=== PATIENT | female | born 1965 | race Caucasian/White ===

== ENCOUNTER 2018-04-26 14:38 | Emergency (ER) | payer OTHER ==
[~2018-04-26] VITALS: Ht 154.9 cm; Wt 72.6 kg
[~2018-04-26 14:38] MED LIST: IBUPROFEN600 MG ORAL; LEVOFLOXACIN500 MG ORAL; LEVOTHYROXINE75 MCG ORAL; MECLIZINE HCL25 MG ORAL; PREDNISONE5 M4 PO; PROAIR HFA8.5 GM INH; PROMETHAZINE-C118 M1 ORAL; TRAMADOL HCL50 MG ORAL; ZOFRAN4 MG ORAL
[2018-04-26 15:07] VITALS: BP 105/77
[2018-04-26] MEDS ORDERED: ZITHROMAX250 MG ORAL ×2 (16:11→16:17)
[2018-04-26] MEDS ORDERED: PROMETHAZINE-C118 M1 ORAL ×2 (16:11→16:17)
[2018-04-26] MEDS ORDERED: ALBUTEROL SULF8.5 GM INH ×2 (16:11→16:17)
[2018-04-26] MEDS ORDERED: PREDNISONE20 MG ORAL ×2 (16:11→16:17)
[2018-04-26 16:20] VITALS: BP 112/80
--- NOTE | 2018-04-26 16:31 | Diagnostic Imaging Report ---
EXAM: XR Chest, 1 View CLINICAL HISTORY: COUGH TECHNIQUE: Frontal view of the chest. COMPARISON: No relevant prior studies available. FINDINGS: Lungs: No consolidation. Pleural space: Unremarkable. No pneumothorax. Heart: Unremarkable. No cardiomegaly. Mediastinum: Unremarkable. Bones/joints: No acute fracture. IMPRESSION: No acute cardiopulmonary disease.
--- NOTE | 2018-04-26 18:00 | Emergency Room Report ---
History of Present Illness General Chief Complaint: Upper Respiratory Illness Source: Patient Present Illness HPI 52-year-old female presents ED for evaluation of cough. States she's had this persistent cough for 20 days now. Dry. Nonproductive. not improving with over -the-counter medications. Denies fevers or chills. Denies chest pain. Denies smoking. Denies sick contacts or recent travel. No other aggravating relieving factors. Denies any other associated symptoms Allergies: Coded Allergies: No Known Allergies (Unverified , 11/29/17) Patient History Past Medical History: none Past Surgical History: none Pertinent Family History: none Social History: Denies: smoking, alcohol use, drug use Now: No Immunizations: UTD Reviewed Nursing Documentation: PMH: Agreed; PSxH: Agreed Nursing Documentation-PMH Past Medical History: No Stated History Review of Systems All Other Systems: negative except mentioned in HPI Physical Exam Vital Signs Date Time Temp Pulse Resp B/P (MAP) Pulse Ox O2 Delivery O2 Flow Rate FiO2 04/26/18 14:57 98.2 86 20 105/77 91 Room Air 98.2 Sp02 EP Interpretation: reviewed, normal General Appearance: no apparent distress, alert, GCS 15, non-toxic Head: normocephalic, atraumatic Eyes: bilateral eye normal inspection, bilateral eye PERRL ENT: hearing grossly normal, normal pharynx, no angioedema, normal voice Neck: full range of motion, supple/symm/no masses Respiratory: chest non-tender, lungs clear, normal breath sounds, speaking full sentences Cardiovascular #1: regular rate, rhythm, no edema Cardiovascular #2: 2+ carotid (R), 2+ carotid (L), 2+ radial (R), 2+ radial (L) , 2+ dorsalis pedis (R), 2+ dorsalis pedis (L) Gastrointestinal: normal bowel sounds, non tender, soft, non-distended, no guarding, no rebound Rectal: deferred Genitourinary: normal inspection, no CVA tenderness Musculoskeletal: back normal, gait/station normal, normal range of motion, non- tender Neurologic: alert, oriented x3, responsive, motor strength/tone normal, sensory intact, speech normal Psychiatric: judgement/insight normal, memory normal, mood/affect normal, no suicidal/homicidal ideation Reflexes: 3+ bicep (R), 3+ bicep (L), 3+ tricep (R), 3+ tricep (L), 3+ knee (R) , 3+ knee (L) Skin: normal color, no rash, warm/dry, well hydrated Lymphatic: no adenopathy Medical Decision Making Diagnostic Impression: Primary Impression: Atypical pneumonia ER Course Hospital Course 52-year-old female presents ED complaining of cough x3 weeks Differential diagnoses include: URI, pharyngitis, otitis media, asthma Clinical course Patient placed on stretcher. After initial history, physical exam reveals a female in no acute distress. Bilateral TM unremarkable. No pharyngeal erythema. No tonsillar exudates. No lymphadenopathy. lungs clear. abdomen soft. chest x-ray shows no lobar infiltrate Presentation consistent with atypical pneumonia. Given prolonged course, i will prescribe antibiotics Diagnosis - atypical pneumonia Stable and discharged home with Rx Zpack, prednisone, albuterol, promethazine/ codeine. Instructed to followup with PMD. Return to ED if symptoms recur or worsen Chest X-Ray Diagnostic Results Chest X-Ray Diagnostic Results : Chest X-Ray Ordered: Yes # of Views/Limited/Complete: 1 View Indication: Other - cough EP Interpretation: Yes Interpretation: no consolidation, no effusion, no pneumothorax, no acute cardiopulmonary disease Impression: No acute disease Electronically Signed by: Electronically signed by Kirill Hinkle MD Last Vital Signs Date Time Temp Pulse Resp B/P (MAP) Pulse Ox O2 Delivery O2 Flow Rate FiO2 04/26/18 16:20 98.0 84 18 112/80 96 Room Air 98.2 Status: improved Disposition: HOME, SELF-CARE Condition: Stable Scripts Azithromycin* (ZITHROMAX*) 250 Mg Tablet 250 MG ORAL DAILY, #6 TAB 0 Refills Take two tables once daily for 1 day, then one tablet once daily for 4 days. Prov: Kirill Hinkle MD 04/26/18 Codeine/Promethazine Hcl* (PROMETHAZINE-CODEINE SYRUP*) 118 Ml Syrup 5 ML ORAL Q6H PRN for For Cough, #118 ML 0 Refills Prov: Kirill Hinkle MD 04/26/18 Albuterol Sulfate* (ALBUTEROL SULFATE MDI*) 8.5 Gm Hfa.aer.ad 2 PUFF INH Q6H, #1 EA 0 Refills Prov: Kirill Hinkle MD 04/26/18 Prednisone* (PREDNISONE*) 20 Mg Tablet 40 MG ORAL DAILY, #10 TAB Prov: Kirill Hinkle MD 04/26/18 Referrals: [facility],REFERRING (PCP) Patient Instructions: Community-Acquired Pneumonia, Adult, [id number] Kirill Hinkle MD Apr 26, 2018 18:00
== END 2018-04-26 16:20 | disposition home or self-care (01) ==
LOC: EMR 15:45
DX: J18.9 Pneumonia, unspecified organism (principal)
CPT/HCPCS: 71045; 99284

== ENCOUNTER 2018-05-05 14:36 | Emergency (ER) | payer OTHER ==
[~2018-05-05] VITALS: Ht 154.9 cm; Wt 72.6 kg
[~2018-05-05 14:36] MED LIST changes: +ALBUTEROL SULF8.5 GM INH; +PREDNISONE20 MG ORAL; +ZITHROMAX250 MG ORAL
[2018-05-05 14:38] VITALS: BP 103/64
[2018-05-05] MEDS ORDERED: Ketorolac 30mg Inj IM ONE (14:45)
[2018-05-05] MEDS ORDERED: Tetanus/Diptheria/Pertussis Vaccine 0.5ml Syr IM ONE (14:45)
--- NOTE | 2018-05-05 14:47 | Emergency Room Report ---
History of Present Illness General Chief Complaint: Multiple Trauma/Fall Source: Patient Present Illness HPI 53-year-old female presents with left wrist, right knee, and chest wall constant , moderate to severe, achy, nonradiating pain status post falling down in the park when she tripped over a wire. She fell forward breaking her fall with her right knee and bilateral hands and chest, she reports she only bled a little from the right knee, and has no hip pain, no neck pain, no head injury, no loss consciousness, and reports the only medication she takes his thyroid medicines. She has no other medical problems other than thyroid disease, and reports no other complaints today. Allergies: Coded Allergies: No Known Allergies (Unverified , 11/29/17) Patient History Past Medical History: see triage record Now: No Reviewed Nursing Documentation: PMH: Agreed; PSxH: Agreed Review of Systems All Other Systems: negative except mentioned in HPI Physical Exam Vital Signs Date Time Temp Pulse Resp B/P (MAP) Pulse Ox O2 Delivery O2 Flow Rate FiO2 05/05/18 14:31 98.2 86 18 103/64 98 Room Air 98.2 Sp02 EP Interpretation: reviewed, normal General Appearance: no apparent distress, alert, non-toxic Head: normocephalic Eyes: bilateral eye normal inspection, bilateral eye PERRL, bilateral eye EOMI ENT: normal ENT inspection, hearing grossly normal, normal pharynx, no angioedema, normal voice, moist mucus membranes Neck: normal inspection, full range of motion, supple, supple/symm/no masses Respiratory: chest non-tender, lungs clear, normal breath sounds, chest symmetrical, palpation of chest normal Cardiovascular #1: normal peripheral pulses, regular rate, rhythm Cardiovascular #2: 2+ radial (R), 2+ radial (L) Gastrointestinal: normal inspection, non tender, soft, no mass, no guarding, no rebound Rectal: deferred Genitourinary: normal inspection, no CVA tenderness Musculoskeletal: back normal, gait/station normal, normal range of motion - All joints with full range , but left wrist and right with mild limitation secondary to pain, but able to range with encouragement, no calf tenderness, other - No cervical, lumbar, thoracic or hip bony tenderness or step-offs, tender - no tenderness over carpal bones on either hand, but +tenderness at L wrist, no snuffbox tenderness Neurologic: alert, responsive, drug room operator III-XII nml as tested, motor strength/tone normal, sensory intact, speech normal Psychiatric: judgement/insight normal, memory normal, mood/affect normal, no suicidal/homicidal ideation Skin: normal color, no rash, warm/dry, normal turgor, abrasions - base of L wrist, inferior aspect R knee Lymphatic: no adenopathy Medical Decision Making Diagnostic Impression: Primary Impression: Fall Additional Impressions: Abrasion Contusion ER Course Patient with mechanical fall, no chest tenderness, no decreased breath sounds, unremarkable evaluation today, cannot suspect hand on injury as there is no tenderness on the hands. Patient is range of motion in all joints, no large contusions or hematomas even, will discharge him home with reassurance. She was given a tetanus booster today. Given Toradol for pain. Chest X-Ray Diagnostic Results Chest X-Ray Diagnostic Results : Chest X-Ray Ordered: Yes Indication: Chest Pain EP Interpretation: Yes Interpretation: no consolidation, no effusion, no pneumothorax, no acute cardiopulmonary disease Impression: No acute disease Electronically Signed by: Ramiro Sherman MD Other X-Ray Diagnostic Results Other X-Ray Diagnostic Results #1: X-Ray ordered: R knee # of Views/Limited Vs Complete: 3 View Indication: Pain EP Interpretation: Yes Interpretation: no dislocation, no soft tissue swelling, no fractures Impression: No acute disease Electronically Signed by: Ramiro Sherman MD Other X-Ray Diagnostic Results #2: X-Ray ordered: L wrist # of Views/Limited Vs Complete: Complete Indication: Pain EP Interpretation: Yes Interpretation: no dislocation, no soft tissue swelling, no fractures, nonspecific bowel gas Impression: No acute disease Electronically Signed by: Ramiro Sherman MD Last Vital Signs Date Time Temp Pulse Resp B/P (MAP) Pulse Ox O2 Delivery O2 Flow Rate FiO2 05/05/18 14:31 98.2 86 18 103/64 98 Room Air 98.2 Disposition: HOME, SELF-CARE Condition: Stable RAMIRO SHERMAN M.D May 05, 2018 14:47
[2018-05-05] MEDS ORDERED: IBUPROFEN600 MG ORAL (15:31)
[2018-05-05] MEDS ORDERED: CYCLOBENZAPRINE10 MG ORAL (15:31)
[2018-05-05] MEDS ORDERED: Cyclobenzaprine 10mg Tab ORAL ONE (15:45)
[2018-05-05 16:09] VITALS: BP 103/64
--- NOTE | 2018-05-05 16:30 | Diagnostic Imaging Report ---
Indication: Knee pain Technique: 3 views of the right knee Comparison: None Findings: No acute fractures. No dislocations. There is mild degenerative narrowing of the medial joint compartment. No suprapatellar effusion Impression: No acute process
--- NOTE | 2018-05-05 17:22 | Diagnostic Imaging Report ---
Clinical Indication:Pain Technique: 3 views of the left wrist Comparison: None Findings: No acute fractures. No dislocations. Joint spaces are preserved. Impression: Negative
--- NOTE | 2018-05-05 17:23 | Diagnostic Imaging Report ---
Indication: Chest pain Technique: One view of the chest Comparison: 04/26/2018 Findings: Inspiration is suboptimal. Lungs pleural spaces are clear. The heart size is normal. No significant change Impression: No acute process
== END 2018-05-05 16:10 | disposition home or self-care (01) ==
LOC: EDBD 14:36 → EMR 15:32
DX: S60.812A Abrasion of left wrist, initial encounter (principal); S80.211A Abrasion, right knee, initial encounter; R07.9 Chest pain, unspecified; Z23 Encounter for immunization; W01.0XXA Fall on same level from slipping, tripping and stumbling without subsequent striking against object, initial encounter; Y92.830 Public park as the place of occurrence of the external cause
CPT/HCPCS: 71045; 73110; 73562; 90471; 90715; 96372; 99284; J1885